=== PATIENT | female | born 1955 | race Caucasian/White ===

== ENCOUNTER 2017-05-11 22:37 | Emergency (ER) | payer OTHER ==
[~2017-05-11] VITALS: Ht 157.5 cm; Wt 67.1 kg
[2017-05-11 22:42] VITALS: BP 168/101; Ht 157.5 cm; Wt 67.1 kg
== END 2017-05-12 01:10 | disposition home or self-care (01) ==
LOC: ED 22:37
DX: M75.92 Shoulder lesion, unspecified, left shoulder (principal)
CPT/HCPCS: J1885; Q0092